=== PATIENT | female | born 1975 ===

== ENCOUNTER 2020-08-08 14:03 | Outpatient (CLI) | payer OTHER ==
--- NOTE | 2020-08-08 15:39 | Ultrasound Report ---
ULTRASOUND OBSTETRIC LIMITED WITH BIOPHYSICAL PROFILE INDICATION / CLINICAL INFORMATION: well being. Clinical Gestational Age (GA): 36.6 weeks.days COMPARISON: None available. FINDINGS: BREATHING MOVEMENT = 2 GROSS BODY MOVEMENT = 2 TONE = 2 QUALITATIVE AMNIOTIC FLUID VOLUME = 2 TOTAL BIOPHYSICAL SCORE = 8/8 HEART RATE (beats per minute): 160 AMNIOTIC FLUID INDEX (cm) = 9.3 (normal = 7-24 cm) PRESENTATION: Cephalic. ADDITIONAL FINDINGS: Fundal position of the placenta. Grade 2 appearance of the placenta. IMPRESSION: 1. No significant abnormality. Signer Name: Juan A Mariscal MD Signed: 08/08/2020 3:34 PM Workstation Name: [id number]
[2020-08-08 15:54] VITALS: BP 128/70
== END 2020-08-08 16:22 | disposition home or self-care (01) ==
LOC: TRG 14:03 → APU 14:04 → TRG 16:22
PROVIDERS: ATTEND Obstetrics & Gynecology
DX: O13.3 Gestational [pregnancy-induced] hypertension without significant proteinuria, third trimester (principal); Z3A.36 36 weeks gestation of pregnancy
CPT/HCPCS: 59025; 76815; 76819

== ENCOUNTER 2020-08-24 20:34 | Inpatient (IN) | payer OTHER ==
[2020-08-24] MEDS ORDERED: LIDOCAINE (2%) 20 MG/1 ML VIAL 20 ML MDV INFILTRATI ONE (22:02)
[2020-08-24] MEDS ORDERED: TERBUTALINE 1 MG/1 ML INJ SUB-Q PRN (22:02)
[2020-08-24] MEDS ORDERED: MINERAL OIL 30 ML ORAL LIQD PO PRN (22:02)
[2020-08-24] MEDS ORDERED: BUTORPHANOL 2 MG/1 ML INJ IV PRN ×2 (22:02)
[2020-08-24] MEDS ORDERED: DINOPROSTONE 10 MG VAG SUPP VG ONE (22:02)
[2020-08-24] MEDS ORDERED: ePHEDrine SULFATE 50 MG/1 ML INJ IV PRN (22:02)
[2020-08-24] MEDS ORDERED: LACTATED RINGERS 1,000 ML IV SCH (22:15)
[2020-08-24] MEDS ORDERED: miSOPROStol 25 MCG TAB VG ONE (22:21)
[2020-08-24 22:28] LABS: Hematocrit 39.5 % (30.3-42.9); Hemoglobin 13.2 gm/dl (10.1-14.3); Mean Corpuscular HGB Conc 33 % (30-34); Mean Corpuscular Volume 88 fl (79-97); Red Blood Count 4.48 M/mm3 (3.65-5.03); Red Cell Distribution Width 14.1 % (13.2-15.2)
[2020-08-24 22:38] LABS: Platelet Count 66 K/mm3 (140-440)
[2020-08-24] MEDS ORDERED: OXYTOCIN DRIP 30 UNITS/500 ML BAG IV SCH (23:00)
[2020-08-25] MEDS: fentaNYL 100 MCG/2 ML INJ IV PRN ×2 (03:29→05:21)
[2020-08-25] MEDS ORDERED: LIDOCAINE (2%) 20 MG/1 ML VIAL 20 ML MDV INFILTRATI ONE (05:17)
--- NOTE | 2020-08-25 05:37 | History and Physical Report ---
History of Present Illness Date of examination: 08/25/20 Date of admission: 08/24/20 20:34 Chief complaint: "I"m in pain" History of present illness: 45 y/o female presented to [facility] ob triage @ 39.2 wks with c/o uc times several hours. She denied LOF or VB and admitted to active FM. She initiated her pnc at [facility] at 18.3 wks. 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 GBS is neg. Pt failed her 1 hr GTT but passed the 3 hr . She was admitted to L&D for delivery. 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, microcytosis) Past Surgical History: no surgical history Family/Genetic History: none - Obstetrical History Expected Date of Delivery: 08/30/20 Actual Gestation: 39 Week(s) 2 Day(s) : 6 Para: 4 Hx # Term Pregnancies: 3 Number of Pregnancies: 1 Spontaneous Abortions: 2 Induced : 0 Number of Living Children: 3 Medications and Allergies Allergies Allergy/AdvReac Type Severity Reaction Status Date / Time No Known Allergies Allergy Verified 10/14/14 10:22 Home Medications Medication Instructions Recorded Confirmed Last Taken Type No Known Home Medications [No 08/25/20 08/25/20 Unknown History Reported Home Medications] Active Meds: Active Medications Butorphanol Tartrate (Butorphanol 2 Mg/1 Ml Inj) 1 mg IV Q2H PRN PRN Reason: Pain, Moderate(4-6) LABOR PAIN Butorphanol Tartrate (Butorphanol 2 Mg/1 Ml Inj) 2 mg IV Q2H PRN PRN Reason: Pain , Severe (7-10) Ephedrine Sulfate (Ephedrine Sulfate 50 Mg/1 Ml Inj) 10 mg IV Q2M PRN PRN Reason: Hypotension Fentanyl (Fentanyl 100 Mcg/2 Ml Inj) 100 mcg IV Q2H PRN PRN Reason: Pain,Severe (7-10) LABOR PAIN Last Admin: 08/25/20 05:21 Dose: 100 mcg Documented by: Oxytocin/Sodium Chloride (Pitocin/Ns 30 Unit/500ml) 30 units in 500 mls @ 2 mls/hr IV TITR CAITLIN; Protocol Lactated Ringer's (Lactated Ringers) 1,000 mls @ 125 mls/hr IV DIRECT CAITLIN Last Admin: 08/24/20 22:29 Dose: 125 mls/hr Documented by: Mineral Oil (Mineral Oil 30 Ml Oral Liqd) 30 ml PO QHS PRN PRN Reason: Constipation Terbutaline Sulfate (Terbutaline 1 Mg/1 Ml Inj) 0.25 mg SUB-Q ONCE PRN PRN Reason: Hyperstimulation/Hypertonicity Review of Systems All systems: negative Eyes: deferred Ears, nose, mouth and throat: deferred Breasts: normal Genitourinary: normal appearance Rectal Exam: deferred - Vital Signs Vital signs: Vital Signs Pulse Resp BP Pulse Ox 72 12 135/72 99 08/24/20 21:22 08/24/20 21:22 08/24/20 21:22 08/24/20 21:22 Temp Pulse Resp BP Pulse Ox 85 12 135/72 98 08/25/20 05:26 08/24/20 21:22 08/24/20 21:28 08/25/20 05:26 - Physical Exam Breasts: Positive: normal Abdomen: Positive: normal appearance, soft, normal bowel sounds, other (gravid) Genitourinary (Female): Positive: normal external genitalia, normal perenium Vulva: both: normal Vagina: Positive: normal moisture Uterus: Positive: enlarged, normal contour, other (gravid) Anus/Rectum: Positive: normal perianal skin Extremities: Positive: normal - Obstetrical FHR: auscultation normal, category 1 Uterine Contraction Monitor Mode: External Cervical Dilatation: 1 Cervical Effacement Percentage: 60 station: -3 Uterine Contraction Frequency (min): q10-12 Uterine Contraction Pattern: Regular Uterine Tone Measurement Phase: Resting Uterine Contraction Intensity: Mild Results Result Diagrams: 08/24/20 21:40 Abnormal lab results 08/24/20 Range/Units 21:40 Plt Count 66 L (140-440) K/mm3 All other labs normal. Assessment and Plan A: IUP@ 39.2 wks AMA, Hx of IUFD, Anemia Gest thrombocytopenia GBS neg P: Admit to L&D Continuous monitoring Pain med/ Epidural prn Cervidil induction Expect progress - Patient Problems (1) Gestational thrombocytopenia Current Visit: Yes Status: Acute
[2020-08-25] MEDS ORDERED: PROMETHAZINE 25 MG TAB PO PRN (06:33)
[2020-08-25] MEDS ORDERED: diphenhydrAMINE 25 MG CAP PO PRN (06:33)
[2020-08-25] MEDS ORDERED: PROMETHAZINE 25 MG RECT SUPP PR PRN (06:33)
[2020-08-25] MEDS ORDERED: ONDANSETRON 4 MG/2 ML INJ IV PRN (06:33)
[2020-08-25] MEDS ORDERED: MAGNESIUM HYDROXIDE (MOM) ORAL LIQD UDC PO PRN (06:33)
[2020-08-25] MEDS ORDERED: WITCH HAZEL/ GLYCERIN PAD TP PRN (06:33)
[2020-08-25] MEDS ORDERED: LANOLIN/ZINC/DIMETHICONE (LANSINOH) 7 GM TP PRN (06:33)
--- NOTE | 2020-08-25 06:47 | Procedure Note ---
OB Delivery Note - Delivery Date of Delivery: 08/25/20 Surgeon: ROLAND SAMUEL Jump Iron Machine Presser: ROLAND SAMUEL Estimated blood loss: 100cc - Vaginal Delivery presentation: vertex Delivery position: OA Intrapartum events: meconium, mult.variable deceleratio Delivery induction: misoprostol Delivery augmentation: rupture of membranes Delivery monitor: external FHT, external uterine Route of delivery: Delivery placenta: spontaneous Delivery cord: nuchal cord, 3 umbilical vessels Episiotomy: none Delivery laceration: none Anesthesia: intravenous Delivery comments: Called to for delivery. SVE 10/100%/+1 and pt was pushing. of a viable live female infant in OA position. Loose nuchal cord was reduced over infants head then head and shoulders were delivered spontaneously. was placed on mom's chest for initial bonding while NICU nurse dried and stimulated infant. Delayed cord clamping x 90 sec. Cord was clamped x 2 and FOB was allowed to cut the cord. Infant was taken by NICU nurse to radiant warmer for an assess. 8/9. Spontaneous delivery of an intact placenta with CVX3 and extra lobe. FF@ U2 with fundal masage and IV Pitocin. An exploration of tears revealed none. EBL 100cc. FW 3873 Gms. Mom and baby left in stable condition with L&D nurse. - Infant A at 1 minute: 8 at 5 minutes: 9 Infant Gender: Female (FW 3873 Gms)
[2020-08-25] MEDS: IBUPROFEN 600 MG TAB PO SCH ×2 (08:35→14:06)
[2020-08-25 17:17] LABS: Hematocrit 36.8 % (30.3-42.9); Hemoglobin 12.3 gm/dl (10.1-14.3)
[2020-08-25] MEDS: ACETAMINOPHEN 500 MG TAB PO PRN (20:21)
[2020-08-26] MEDS ORDERED: DIPHtheria,PERTUSSIS(ACELL),TETANUS VACCINE/PF 0.5 ML VIAL IM ONE (06:00)
[2020-08-26] MEDS: ACETAMINOPHEN 500 MG TAB PO PRN (06:02)
[2020-08-26 09:55] LABS: Basophils % (Auto) 0.3 % (0.0-1.8); Eosinophils # (Auto) 0.1 K/mm3 (0.0-0.4); Eosinophils % (Auto) 0.6 % (0.0-4.3); Hematocrit 42.2 % (30.3-42.9); Hemoglobin 13.8 gm/dl (10.1-14.3); Lymphocytes # (Auto) 2.1 K/mm3 (1.2-5.4); Lymphocytes % (Auto) 20.5 % (13.4-35.0); Mean Corpuscular HGB Conc 33 % (30-34); Mean Corpuscular Volume 90 fl (79-97); Monocytes # (Auto) 0.3 K/mm3 (0.0-0.8); Red Blood Count 4.69 M/mm3 (3.65-5.03); Red Cell Distribution Width 14.8 % (13.2-15.2)
[2020-08-26 09:56] LABS: Platelet Count 90 K/mm3 (140-440)
[2020-08-26 10:17] LABS: Alanine Aminotransferase 21 units/L (7-56); Albumin 3.3 g/dL (3.9-5); BUN/Creatinine Ratio 12; Blood Urea Nitrogen 7 mg/dL (7-17); Hemolysis Index 7
--- NOTE | 2020-08-26 12:11 | Progress Note ---
Assessment and Plan A: day 1 S/P . Gestational thrombocytopenia: platelet count stable/increasing. P: Discharge patient home today. Discussed with patient discharge instructions and warning signs. Advised patient to avoid intercourse, lifting, heavy housework. Advised patient to follow up at [facility] in 3 days for repeat platelet count and follow up. Patient voiced understanding of instructions. Subjective - Subjective Date of service: 08/26/20 Principal diagnosis: day 1 S/P Interval history: Repeat platelet count is 90,000. Patient desires discharge home today. Patient reports: appetite normal, voiding normally, pain well controlled, flatus, ambulating normally, no dizzy ambulation, no nauseated [place]: doing well Objective - Vital Signs Latest vital signs: Vital Signs Temp Pulse Resp BP Pulse Ox 08/26/20 07:29 98.0 F 54 L 20 130/57 96 08/25/20 23:27 98.0 F 63 16 125/59 96 08/25/20 16:02 98.4 F 57 L 20 127/59 97 Intake and Output 08/25/20 08/26/20 08/26/20 23:59 07:59 15:59 Intake Total 240 720 Output Total 650 Balance -410 720 Intake: Oral 240 Intake, Free Water 720 Output: Urine 650 Void 650 Other: Total, Intake Amount 240 Total, Output Amount 650 # Voids Void 2 - Exam Cardiovascular: Present: Regular rate Lungs: Present: Clear to auscultation Abdomen: Present: normal appearance, soft, normal bowel sounds. Absent: distention, tenderness, guarding, rigidity Uterus: Present: normal, firm, fundal height below umbilicus. Absent: bogginess, tenderness Extremities: Present: normal. Absent: tenderness - Labs Labs: Abnormal lab results 08/26/20 08/26/20 Range/Units 09:18 09:18 Plt Count 90 L (140-440) K/mm3 Seg Neutrophils % 75.6 H (40.0-70.0) % Sodium 136 L (137-145) mmol/L Glucose 119 H (65-100) mg/dL Alkaline Phosphatase 188 H (35-129) units/L Albumin 3.3 L (3.9-5) g/dL
--- NOTE | 2020-08-26 12:23 | Discharge Summary ---
Providers - Providers Date of Admission: 08/24/20 20:34 Date of discharge: 08/26/20 Attending physician: LOR JOLLY JR, MD Primary care physician: LOR JOLLY JR, MD Hospitalization Reason for admission: active labor Delivery: Episiotomy: none Laceration: none Other procedures: none complications: none Discharge diagnosis: IUP at term delivered baby: female Pertinent studies: Labs Hospital course: Normal hospital course Condition at discharge: Good Disposition: DC-01 TO HOME OR SELFCARE - Discharge Diagnoses (1) Term delivered Status: Acute Plan - Provider Discharge Summary Activity: routine, no sex for 6 weeks, no heavy lifting 4 weeks, no strenuous exercise Diet: routine Instructions: routine Additional instructions: Follow up at [facility] in 3 days for repeat platelet count. Continue taking your vitamin at home. Call your doctor immediately for: * Fever > 100.5 * Heavy vaginal bleeding ( >1 pad per hour) * Severe persistent headache * Shortness of breath * Reddened, hot, painful area to leg or breast - Follow up plan Follow up: LOR JOLLY JR, MD [Primary Care Provider] - 3 Days Forms: [facility] Discharge Summary
[2020-08-26 13:24] VITALS: BP 135/61
== END 2020-08-26 13:24 | disposition home or self-care (01) | DRG 806 ==
LOC: LD 20:34 → OB 08-25 09:09
PROVIDERS: ADMIT Obstetrics & Gynecology; ATTEND Obstetrics & Gynecology
PROC: 3E0P7VZ Introduction of Hormone into Female Reproductive, Via Natural or Artificial Opening (ICD-10-PCS; principal; 2020-08-25)
PROC: 10E0XZZ Delivery of Products of Conception, External Approach (ICD-10-PCS; 2020-08-25)
PROC: 3E0234Z Introduction of Serum, Toxoid and Vaccine into Muscle, Percutaneous Approach (ICD-10-PCS; 2020-08-26)
DX: O77.0 Labor and delivery complicated by meconium in amniotic fluid (principal); O99.12 Other diseases of the blood and blood-forming organs and certain disorders involving the immune mechanism complicating childbirth; Z37.0 Single live birth; O76 Abnormality in fetal heart rate and rhythm complicating labor and delivery; O69.1XX0 Labor and delivery complicated by cord around neck, with compression, not applicable or unspecified; O99.02 Anemia complicating childbirth; D69.6 Thrombocytopenia, unspecified; Z3A.39 39 weeks gestation of pregnancy
CPT/HCPCS: 36415; 80053; 85014; 85018; 85025; 85027; 86592; 86850; 86900; 86901; 90715; G0378; J3010; J7120; U0003